=== PATIENT | female | born 2005 | race Caucasian/White ===

== ENCOUNTER 2025-09-09 14:48 | Emergency (ER) | payer OTHER, MEDICAID ==
[~2025-09-09] VITALS: Ht 172.7 cm; Wt 109.0 kg
[~2025-09-09 14:48] MED LIST: AMPICILLIN; AZITHROMYCIN; MOTRIN; TYLENOL
[2025-09-09 14:54] VITALS: BP 145/91; PULSE 98; RESP 16; TEMP 98; O2SAT 97
[2025-09-09] MEDS: IBUPROFEN 600MG TABLET PO ONE (16:02)
[2025-09-09] MEDS ORDERED: IBUP-1455 MT (16:58)
[2025-09-09] MEDS ORDERED: LIDO-53 TP (16:58)
== END 2025-09-09 17:14 | disposition home or self-care (01) ==
LOC: ER 14:48
DX: S80.11XA Contusion of right lower leg, initial encounter (principal); S00.81XA Abrasion of other part of head, initial encounter; V89.2XXA Person injured in unspecified motor-vehicle accident, traffic, initial encounter; Y93.89 Activity, other specified; Y92.410 Unspecified street and highway as the place of occurrence of the external cause; Y99.8 Other external cause status
CPT/HCPCS: 73590; 73630; 99284